=== PATIENT | male | born 1950 | race Caucasian/White ===

== ENCOUNTER 2021-09-30 14:05 | Emergency (ER) | payer OTHER ==
[2021-09-30 14:34] VITALS: BP 139/78; PULSE 78; TEMP 98.6; BMI 32.2
[2021-09-30] MEDS ORDERED: TUBERCULIN PPD 5 TU/0.1ML SYRINGE (IN PATIENT USE ONLY) ID ONE (14:52)
[2021-10-01 14:09] LABS: SARS-CoV-2 NAA Not Detected (Not Detected)
== END 2021-09-30 17:07 | disposition home or self-care (01) ==
LOC: FER 14:05
DX: R04.2 Hemoptysis (principal); R05.9 Cough, unspecified
CPT/HCPCS: 71046-TC-FY; 87804; 87807; 99284-25; C9803; U0003; U0005

== ENCOUNTER 2021-12-16 10:05 | Emergency (ER) | payer OTHER ==
[2021-12-16 10:49] VITALS: BP 123/77; PULSE 91; TEMP 98.2; BMI 28.2
[2021-12-16] MEDS ORDERED: ACETAMINOPHEN 325 MG TABLET (FP) PO ONE (11:04)
[2021-12-16] MEDS ORDERED: ACETAMINOPHEN 325 MG TABLET (FP) ONE (11:08)
== END 2021-12-16 11:19 | disposition home or self-care (01) ==
LOC: FER 10:05
DX: R05.9 Cough, unspecified (principal)
CPT/HCPCS: 71046-TC-FY; 99283-25